=== PATIENT | female | born 1930 ===

== ENCOUNTER → 2017-09-17 | Outpatient (CLI) | payer MEDICARE, OTHER | END | disposition home or self-care (01) | LOC: PLD 14:22 → LAB SHORT 14:22 | DX: C44.722 Squamous cell carcinoma of skin of right lower limb, including hip (principal) | CPT/HCPCS: 88305 ==

== ENCOUNTER → 2018-03-12 | Outpatient (CLI) | payer MEDICARE, OTHER | END | disposition home or self-care (01) | LOC: LAB SHORT 14:15 → PLD 14:15 | DX: C44.629 Squamous cell carcinoma of skin of left upper limb, including shoulder (principal) | CPT/HCPCS: 88305 ==

== ENCOUNTER 2018-06-06 03:01 | Emergency (ER) | payer MEDICARE, OTHER ==
[~2018-06-06] VITALS: Ht 165.1 cm; Wt 65.8 kg
[2018-06-06] MEDS ORDERED: LEVALBUTEROL TA15 GM INH (04:01)
[2018-06-06] MEDS ORDERED: CONEST1.25 PO (04:02)
[2018-06-06] MEDS ORDERED: GABA100 PO (04:18)
[2018-06-06] MEDS ORDERED: CLARITIN10 MG PO (04:18)
[2018-06-06] MEDS ORDERED: Prednisone2.5 MG PO (04:18)
== END 2018-06-06 05:20 | disposition home or self-care (01) ==
LOC: ER 03:01
DX: J02.9 Acute pharyngitis, unspecified (principal); Z79.899 Other long term (current) drug therapy; Z79.52 Long term (current) use of systemic steroids; J45.909 Unspecified asthma, uncomplicated
CPT/HCPCS: 87081; 87430; 93005; 93010; 99283-25